=== PATIENT | male | born 1970 | race Caucasian/White ===

== ENCOUNTER 2018-09-29 19:45 | Emergency (ER) | payer MEDICAID ==
[2018-09-29 20:16] LABS: MONOCYTE ABSOLUTE 0.7 Th/cmm (0.3-1.0); NEUTROPHILE ABSOLUTE 4.8 Th/cmm (1.8-8.0); RED BLOOD COUNT 5.17 Mil/cmm (4.30-5.70)
[2018-09-29 20:19] LABS: % BASOPHILS 0.5 % (0.0-2.0); % EOSINOPHILS 5.5 % (0.0-5.0); % LYMPHOCYTES 25.8 % (20.0-50.0); % NEUTROPHILS 59.2 % (40.0-80.0); EOSINOPHILE ABSOLUTE 0.4 Th/cmm (0.1-0.4); HEMOGLOBIN 16.1 gm/dL (12-16); LYMPHOCYTE ABSOLUTE 2.1 Th/cmm (1.5-3.0); MEAN CORPUSCULAR HEMOGLOBIN 31.1 pg (26.0-30.0); MEAN CORPUSCULAR HGB CONC 33.4 pg (28.0-36.0); MEAN PLATELET VOLUME 7.8 fl; PLATELET COUNT 245 Th/cmm (150-400); RED CELL DISTRIBUTION WIDTH 12.2 % (11.5-20.0)
[2018-09-29 20:36] LABS: ALBUMIN 3.8 gm/dL (4.2-5.5); ALKALINE PHOSPHATASE 97 U/L (34-104); ANION GAP 13.7 (7.0-16.0); BILIRUBIN,TOTAL 0.4 mg/dL (0.3-1.0); BUN - UREA NITROGEN 9 mg/dL (7-25); CALCIUM SERUM 9.7 mg/dL (8.6-10.3); CARBON DIOXIDE 27.2 mEq/L (21.0-31.0); CHLORIDE 100 mEq/L (98-107); CREATININE - SERUM 1.1 mg/dL (0.7-1.3); GFR AFRICAN-AMERICAN > 60.0 ml/min (>90); GFR NON AFRICAN-AMERICAN > 60.0 ml/min; GLUCOSE 98 mg/dL (70-105); POTASSIUM SERUM 3.9 mEq/L (3.5-5.1); SGOT 64 U/L (13-39); SGPT/ALT 100 U/L (7-52); SODIUM SERUM 137 mEq/L (136-145); TOTAL PROTEIN,SERUM 7.7 gm/dL (6.0-8.3)
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
--- NOTE | 2018-09-30 08:31 | Diagnostic Imaging Report ---
CT scan of the chest without intravenous contrast HISTORY: Pain, trauma Total DLP equals 245 CTDI equals 8.0 Axial sections were obtained from a level above the clavicles down to level below the diaphragm. The exam demonstrates mildly displaced comminuted fracture involving the midportion of the right clavicle. The heart size is normal. No abnormal mediastinal masses. No abnormality seen in the hilar regions. No focal pulmonary parenchymal processes. No pleural fluid. IMPRESSION: 1. Right clavicular fracture 2. No acute intrathoracic abnormalities 3. Incidentally noted are changes of a prior cholecystectomy
--- NOTE | 2018-09-30 08:40 | Diagnostic Imaging Report ---
Portable chest x-ray History: Shortness of breath Allowing for portable technique the heart size is normal. No focal pulmonary parenchymal processes. No hilar or mediastinal abnormalities. Impression: No acute abnormalities.
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
--- NOTE | 2018-09-30 08:56 | Diagnostic Imaging Report ---
Right ankle (2 views) HISTORY: Pain, swelling No acute bony abnormalities. No fractures. Mild generalized soft tissue swelling. Joint spaces appear normal. IMPRESSION: 1. No acute focal bony abnormalities
== END 2018-09-29 22:10 | disposition home or self-care (01) ==
LOC: ER 19:45
DX: S42.031A Displaced fracture of lateral end of right clavicle, initial encounter for closed fracture (principal); S20.219A Contusion of unspecified front wall of thorax, initial encounter; S43.401A Unspecified sprain of right shoulder joint, initial encounter; S93.401A Sprain of unspecified ligament of right ankle, initial encounter; V19.9XXA Pedal cyclist (driver) (passenger) injured in unspecified traffic accident, initial encounter; Y93.89 Activity, other specified; Y92.89 Other specified places as the place of occurrence of the external cause; Y99.8 Other external cause status
CPT/HCPCS: 36415-UA; 71045-TC; 71250-TC; 73030-TC-RT; 73600-TC-RT; 80053-TC; 85025-TC; Z7502